=== PATIENT | male | born 1990 | race Caucasian/White ===

== ENCOUNTER 2024-12-25 15:04 | Emergency (ER) | payer OTHER, SELFPAY ==
[2024-12-25 15:07] VITALS: BP 135/77; PULSE 84; RESP 17; TEMP 37.2; O2SAT 100; BMI 26.4
--- NOTE | 2024-12-25 16:09 | ED_ITS ---
HPI - Back Pain/Injury <Mackenzie Rueda PA-C - Last Filed: 12/25/24 18:06> General Chief Complaint: Back Pain/Injury Stated Complaint: Lower Back Pain Time Seen by Provider: 12/25/24 16:09 Source: patient and EMS History of Present Illness HPI Narrative: Mr. 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 Patient states as he was lifting the gal jug he developed acute sudden and severe pain in the middle of his lumbar back. He crawled to his couch but then was unable to move or get up off his couch with the assistance of his [id number] and daughter so EMS was called to help lift him and bring him to the emergency department. He developed radiation of pain into the leg abdomen or chest. Pain is only in the midline lumbar spine. He denies any numbness tingling or weakness of the lower legs, bowel or bladder incontinence, fevers or chills, no prior back injuries. No surgeries. No medications prior to arrival. Related Data Previous Rx's Medication Instructions Recorded lidocaine 5 % topical patch 1 patch topical DAILY #30 ea 12/25/24 (Lidoderm) methocarbamol 500 mg tablet 500 mg PO TID PRN muscle pain #30 12/25/24 tabs naproxen 500 mg tablet 500 mg PO BID PRN pain #20 tabs 12/25/24 Allergies Allergy/AdvReac Type Severity Reaction Status Date / Time No Known Drug Allergies Allergy Verified 12/25/24 15:07 Review of Systems <Mackenzie Rueda PA-C - Last Filed: 12/25/24 18:06> Review of Systems ROS Unobtainable: All systems reviewed & are unremarkable except as noted in HPI and below Patient History <Mackenzie Rueda PA-C - Last Filed: 12/25/24 18:06> Social History Smoking Status: Former smoker Smoking Status: Former smoker Exam <Mackenzie Rueda PA-C - Last Filed: 12/25/24 18:06> Narrative Exam Narrative: GENERAL: 34 year old patient appears stated age. Well-developed patient, in no acute distress, sitting partially upright in stretcher. He is able to roll onto his side to allow for back examination but is unable to stand up. HEAD: Atraumatic. Normocephalic. NECK: Trachea midline. Cervical ROM intact. CARDIOVASCULAR: Regular rate and rhythm. RESPIRATORY: ?Nonlabored respirations. ?Speaking in clear, full sentences. ?Clear to auscultation. Breath sounds equal bilaterally. No wheezes, rales, or rhonchi. ? GASTROINTESTINAL: Abdomen soft, non-tender, nondistended. EXTREMITIES: No edema or joint tenderness. Strong DP and PT pulses, brisk capillary refill in the toes. BACK: Tenderness to palpation of mid lumbar spine with no palpable deformities. Pain with active bilateral straight leg raise, pain only with left passive straight leg raise. NEURO: AOx3. ?Clear speech. ?Moves all 4 extremities appropriately. Sensation intact to light touch on bilateral lower extremities and upper extremities. SKIN: No rash or erythema of visible areas Initial Vital Signs Initial Vital Signs: Vital Signs Temperature 98.9 F 12/25/24 15:07 Pulse Rate 84 12/25/24 15:07 Respiratory Rate 17 12/25/24 15:07 Blood Pressure 135/77 12/25/24 15:07 Pulse Oximetry 100 12/25/24 15:07 Oxygen Delivery Method Room Air 12/25/24 15:07 <Chelo Lomeli DO - Last Filed: 12/25/24 18:10> Initial Vital Signs Initial Vital Signs: Vital Signs Temperature 98.9 F 12/25/24 15:07 Pulse Rate 84 12/25/24 15:07 Respiratory Rate 17 12/25/24 15:07 Blood Pressure 135/77 12/25/24 15:07 Pulse Oximetry 100 12/25/24 15:07 Oxygen Delivery Method Room Air 12/25/24 15:07 Course <Mackenzie Rueda PA-C - Last Filed: 12/25/24 18:06> Orders Ordered: ED Orders 12/25/24 17:00 CT lumbar spine wo con Stat Discontinued Medications Ketorolac Tromethamine (Ketorolac 30 Mg/Ml Vial) 15 mg IV NOW ONE Stop: 12/25/24 16:30 Last Admin: 12/25/24 16:41 Dose: 15 mg Documented By: KASSY Lidocaine (Lidocaine 5% Patch) 1 each TOP NOW ONE Stop: 12/25/24 16:30 Last Admin: 12/25/24 16:40 Dose: 1 each Documented By: KASSY Morphine Sulfate (Morphine 4 Mg/Ml Inj) 4 mg IV NOW ONE Stop: 12/25/24 16:30 Last Admin: 12/25/24 16:41 Dose: 4 mg Documented By: KASSY Ondansetron HCl (Ondansetron 4 Mg/2 Ml Inj) 4 mg IV NOW ONE Stop: 12/25/24 16:30 Last Admin: 12/25/24 16:41 Dose: 4 mg Documented By: KASSY Vital Signs Vital signs: Vital Signs - 8 hr 12/25/24 15:07 Temperature 98.9 F Pulse Rate 84 Respiratory Rate 17 Blood Pressure 135/77 Pulse Oximetry 100 Oxygen Delivery Method Room Air <Chelo Lomeli DO - Last Filed: 12/25/24 18:10> Orders Ordered: ED Orders 12/25/24 17:00 CT lumbar spine wo con Stat Discontinued Medications Ketorolac Tromethamine (Ketorolac 30 Mg/Ml Vial) 15 mg IV NOW ONE Stop: 12/25/24 16:30 Last Admin: 12/25/24 16:41 Dose: 15 mg Documented By: KASSY Lidocaine (Lidocaine 5% Patch) 1 each TOP NOW ONE Stop: 12/25/24 16:30 Last Admin: 12/25/24 16:40 Dose: 1 each Documented By: KASSY Morphine Sulfate (Morphine 4 Mg/Ml Inj) 4 mg IV NOW ONE Stop: 12/25/24 16:30 Last Admin: 12/25/24 16:41 Dose: 4 mg Documented By: KASSY Ondansetron HCl (Ondansetron 4 Mg/2 Ml Inj) 4 mg IV NOW ONE Stop: 12/25/24 16:30 Last Admin: 12/25/24 16:41 Dose: 4 mg Documented By: KASSY Vital Signs Vital signs: Vital Signs - 8 hr 12/25/24 15:07 Temperature 98.9 F Pulse Rate 84 Respiratory Rate 17 Blood Pressure 135/77 Pulse Oximetry 100 Oxygen Delivery Method Room Air MDM - Back Pain/Injury <Mackenzie Rueda PA-C - Last Filed: 12/25/24 18:06> Imaging Data Lumbar CT: Radiologist's Impression: PROCEDURE: CT LUMBAR SPINE WO CON INDICATIONS: Acute midline lumbar pain while lifting heavy TECHNIQUE: Noncontrast 3 mm thick sections acquired from the T12 level to the sacrum. Sagittal and coronal reformats were constructed. For radiation dose reduction, the following was used: automated exposure control. COMPARISON: None. FINDINGS: Image quality: Excellent. Bones: There is normal bony alignment. No acute vertebral body compression fractures. No suspicious lytic or blastic bony lesions. No pars defects. Soft tissues: No retroperitoneal masses or hematomas. Visualized aorta is normal in caliber. IMPRESSION: Normal lumbar spine. 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 He is here with his who has an independent historian. Differential diagnosis includes but is not limited to lumbar strain, herniated disc, spinal stenosis, radiculopathy, compression fracture, etc. On exam the patient is in no acute distress, nontoxic appearing, vital signs within normal limits. He is unable to stand up due to lumbar pain. He is able to roll on his side and has some midline lumbar discomfort to palpation. Lower extremities are neurovascularly intact, there is no fever, no bowel or bladder incontinence, no numbness tingling or weakness of the lower legs. Given acute pain and tenderness to palpation of lumbar spine we will proceed with CT imaging and we will treat with multimodal pain therapy including Toradol, morphine, Lidoderm. Patient feeling much better after ED treatment, is able to stand and ambulate independently. CT lumbar spine reveals no acute bony abnormalities. Normal lum bar spine. Suspect lumbar strain from heavy lifting. Prescribed patient naproxen, Robaxin, lidocaine patches and also recommended acetaminophen, heat therapy, gentle stretching. Advised light duty for at least the next week until cleared by PCP. Encourage patient to follow up with ortho spine for further evaluation if he has persistent pain, and strict ED return precautions were discussed. Patient and verbalized understanding of all information and he is agreeable to the plan. He is stable for discharge home. Discharge Plan Departure Patient Disposition: Home Clinical Impression: Acute lumbar myofascial strain Qualifiers: Encounter type: initial encounter Qualified Code(s): S39.012A - Strain of muscle, fascia and tendon of lower back, initial encounter Instructions: DI for Low Back Pain Activity Restrictions/Additional Instructions: Dear Mr. Coley, Thank you for coming to the emergency department. Today you were evaluated for acute low back pain while lifting heavy. The CT scan of your lumbar spine did not show any acute bony abnormalities which is very reassuring however it is still important to follow up with your primary care doctor and if you have persistent pain he will need to see an orthopedic spine surgeon for further evaluation. Please take the prescribed medications: Naproxen (anti-inflammatory pain medication), Methocarbamol (muscle relaxer), Lidoderm (topical numbing patch) in addition to Tylenol/acetaminophen. It is very important for you to rest, use heat therapy, perform gentle stretches, and avoid heavy lifting or strenuous exercise. Please return to the emergency department if you develop any weakness, numbness, issues with your bowels or bladder, or any other concerns. Please follow up with your primary care doctor within the next 2-3 days for ER follow-up. (If you do not have a PCP you can call [phone]. ?to schedule an appointment with an [facility] Primary Care Provider) IF YOU DEVELOP ANY NEW OR WORSENING SYMPTOMS, RETURN TO THE ER! Please read the attached instructions, they highlight more specific treatments and interventions for you at home. Thank you for letting me participate in your care, Mackenzie Rueda PA-C Prescriptions: New naproxen 500 mg tablet 500 mg PO BID PRN (Reason: pain) Qty: 20 0RF Rx Instructions: Take with food. methocarbamol 500 mg tablet 500 mg PO TID PRN (Reason: muscle pain) Qty: 30 0RF lidocaine [Lidoderm] 5 % adhesive patch,medicated 1 patch topical DAILY Qty: 30 0RF Rx Instructions: leave on most painful area for up to 12 hrs Referrals: ProviderKemal [Primary Care Provider] - Stand Alone Forms: Patient Portal/API/Survey, Work Release Note ED Sign-out <Chelo Lomeli DO - Last Filed: 12/25/24 18:10> Cosign ED Attending Cosshelbiature Attestation: I was immediately available in the department for consultation.
[2024-12-25] MEDS: LIDOCAINE 5% PATCH 1 EACH TOP (16:40)
[2024-12-25] MEDS: KETOROLAC 30 MG/ML VIAL 15 MG IV (16:41)
[2024-12-25] MEDS: ONDANSETRON 4 MG/2 ML INJ IV (16:41)
[2024-12-25] MEDS: MORPHINE 4 MG/ML INJ IV (16:41)
--- NOTE | 2024-12-25 17:00 | DI.CT.S_ITS ---
PROCEDURE: CT LUMBAR SPINE WO CON INDICATIONS: Acute midline lumbar pain while lifting heavy TECHNIQUE: Noncontrast 3 mm thick sections acquired from the T12 level to the sacrum. Sagittal and coronal reformats were constructed. For radiation dose reduction, the following was used: automated exposure control. COMPARISON: None. FINDINGS: Image quality: Excellent. Bones: There is normal bony alignment. No acute vertebral body compression fractures. No suspicious lytic or blastic bony lesions. No pars defects. Soft tissues: No retroperitoneal masses or hematomas. Visualized aorta is normal in caliber. IMPRESSION: Normal lumbar spine. Dictated by: Karla Rodriguez M.D. on 12/25/2024 at 16:39 Approved by: Karla Rodriguez M.D. on 12/25/2024 at 16:40
--- NOTE | 2024-12-25 17:19 | PC.NURSE ---
Pt was reportedly able to stand and transfer at CT
--- NOTE | 2024-12-25 17:21 | PC.NURSE ---
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 Pt unable to fully bear weight without pain. Pain to palpation in lower lumbar. No loss of bladder or bowel. 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 Pt states he called EMS because she was unable to get up
[2024-12-25 18:15] VITALS: BP 127/69; PULSE 77; RESP 16; O2SAT 95
--- NOTE | 2024-12-25 18:15 | PC.NURSE ---
Pedal pulses in tact. Pt able to ambulate out of department
== END 2024-12-25 18:16 | disposition home or self-care (01) ==
PROVIDERS: Emergency Provider Physician Assistant
DX: S39.012A Strain of muscle, fascia and tendon of lower back, initial encounter (principal); X50.0XXA Overexertion from strenuous movement or load, initial encounter
CPT/HCPCS: 72131; 96374; 96375; 99283; 99284; J1885; J2270; J2405